=== PATIENT | female | born 1965 | race Caucasian/White ===

== ENCOUNTER 2023-04-30 09:13 | Outpatient (CLI) | payer OTHER ==
--- NOTE | 2023-04-30 12:06 | XRAY Report ---
PROCEDURE: Chest 2 View X-Ray INDICATIONS: COUGH/URI TECHNIQUE: 2 views of the chest were acquired. COMPARISON: None. FINDINGS: Surgical changes and devices: None. Lungs and pleura: Trace, patchy right basilar airspace opacity. Mediastinum: Mediastinal contours appear normal. Heart size is normal. Bones and chest wall: No suspicious bony lesions. Overlying soft tissues appear unremarkable. IMPRESSION: Trace, patchy right basilar airspace opacity versus prominent nipple shadow. Consider follow-up in 2- 3 months with chest x-ray to ensure resolution. Reviewed by: Elio Dobson on 04/30/2023 12:05 PM PDT Approved by: Elio Dobson on 04/30/2023 12:05 PM PDT Station ID: [id number]
== END 2023-04-30 09:14 | disposition home or self-care (01) ==
LOC: DI 09:13
PROVIDERS: ATTEND Nurse Practitioner
DX: J06.9 Acute upper respiratory infection, unspecified (principal); R05.9 Cough, unspecified